=== PATIENT | male | born 1945 | race Caucasian/White ===

== ENCOUNTER → 2017-02-20 | Day surgery (SDC) | payer OTHER ==
[~2017-02-20] VITALS: Ht 162.6 cm; Wt 72.3 kg
[~2017-02-20] MED LIST: ASPI-110 PO; ATEN50TA PO; CHLORHEXIDINE GLUCONATE 2 % 1 PACK (2 CLOTHS) TOPICAL PRN; CYAN100025 SL; DEXAMETHASONE SOD PHOS 4 MG/ML VIAL ONE; DO NOT ADM ANY ANTICOAGULANT DRUGS PRN; FAMOTIDINE 20 MG/2 ML VIAL ONE; FURO40TA PO; HEPARIN SODIUM - IV 10,000 UNITS/10 ML VIAL ONE; HEPARIN-NS/PF INJ 500 ML ONE; INSULIN HUMAN REGULAR 1,000 UNITS/10 ML VIAL SQ PRN; IOHEXOL 350 MG/ML 50 ML BTL (for RAD DIAG) IVCONTRAST ONE; LACTATED RINGER'S 1000 ML IV PRN; LIDOCAINE HCL 1% PF 5 ML AMPULE OTHER ONE; METOPROLOL TARTRATE 25 MG TAB PO PRN; MIDAZOLAM HCL 2 MG/2 ML VIAL IV ONE; MIDAZOLAM HCL 2 MG/2 ML VIAL ONE; MULTTAB27 PO; OCUVTAB4 PO; ONDANSETRON HCL 4 MG/2 ML VIAL IV PUSH ONE; ONGL5TAB PO; PHENYLEPH/NS 1000 MCG/10 ML SYR IV ONE; PLAV75TA29 PO; POTA-243 PO; POVIDONE IODINE 5% (ANTISEPSIS KIT) 4 APPLICATIONS EACH NARE PRN; PROPOFOL 200 MG/20 ML AMP IV ONE; PROTAMINE SULFATE 50 MG/5 ML VIAL ONE; RAMI10CA PO; ROCURONIUM INJ 50 MG/5 ML SYRINGE IV PUSH ONE; ROSU40 PO; SODIUM CHLORID 0.9% 500 ML IV PRN; TRAM50TA PO; VITA1000 PO; VITA500C18 PO; ZETI10TA5 PO
--- NOTE | 2017-02-20 11:41 | HHI.HP ---
History of Present Illness Chief Complaint: L LE claudication History of Present Illness 71 yo male with L LE claudication. Has a history of ABF and multiple L LE angiograms. No rest pain and no tissue loss. Past/Family/Social History Past Medical History CAD PAD HTN DM Past Surgical History CABG ABF Multiple L LE angiograms Social History nonsmoker Family History NC Home Medications Reported Medications Ascorbic Acid ER (Vitamin C Sr) 500 Mg Caper, 500 MG PO DAILY for Nutritional Supplement, CAP 0 Refills 02/19/[address] (Aspirin 81) 81 Mg Tabdr, 81 MG PO DAILY, TAB 0 Refills 02/19/17 Atenolol (Atenolol) 50 Mg Tab, 50 MG PO DAILY for Blood Pressure Management, # 30 TAB 0 Refills 02/19/17 Cholecalciferol (Vitamin D-1000) 1,000 Unit Tab, 1000 UNITS PO DAILY for Nutritional Supplement, #1 BOTTLE 0 Refills 02/19/17 Clopidogrel (Plavix) 75 Mg Tab, 75 MG PO DAILY for Blood Clot Prevention, #30 TAB 0 Refills 02/19/17 Cyanocobalamin (B-12) 1,000 Mcg Subl, 1000 MCG SL DAILY for Nutritional Supplement, TAB.SL 0 Refills 02/19/17 Ezetimibe (Zetia) 10 Mg Tab, 10 MG PO DAILY, #30 TAB 0 Refills 02/19/17 Furosemide (Furosemide) 40 Mg Tab, 40 MG PO DAILY, #30 TAB 0 Refills 02/19/17 Multiple Vitamin (Multi-Day Vitamins) 1 Tab Tab, 1 TAB PO DAILY 02/19/17 Multiple Vitamins W/ Minerals (Preservision Areds) 1 Tab, 1 TAB PO DAILY for Nutritional Supplement, TAB 0 Refills 02/19/17 Potassium Chloride ER (Klor-Con 10) 10 Meq Tab, 10 MEQ PO DAILY for Electrolyte Replacement, #30 TAB 0 Refills 02/19/17 Ramipril (Ramipril) 10 Mg Cap, 10 MG PO DAILY, #30 CAP 0 Refills 02/19/17 Rosuvastatin (Crestor) 40 Mg Tab, 40 MG PO DAILY for Cholesterol Management, # 30 TAB 0 Refills 02/19/17 Saxagliptin (Onglyza) 5 Mg Tab, 5 MG PO DAILY for Blood Sugar Management, #30 TAB 0 Refills 02/19/17 Tramadol (Tramadol) 50 Mg Tab, 50 MG PO BID NEB, TAB 0 Refills 02/19/17 Coded Allergies: No Known Allergies (Verified , 12/24/12) Review of Systems Cardiovascular: DENIES: Chest pain Physical Exam Neuro: resting comfortably GALVEZ HEENT: NC/AT Neck: no JVD; trachea midline Heart: reg rate, no M Lungs: clear B Abdomen: nontender Vascular: palpable femoral pulses no L pedal pulses Caprini VTE Risk Assessment Caprini VTE Risk Assessment: Mod/High Risk (score >= 2) Caprini Risk Assessment Model Point Value = 1 Point Value = 2 Point Value = 3 Point Value = 5 Age 41-60 Minor surgery BMI > 25 kg/m2 Swollen legs Varicose veins or History of unexplained or recurrent spontaneous Oral contraceptives or hormone replacement Sepsis (< 1 month) Serious lung disease, including pneumonia (< 1 month) Abnormal pulmonary function Acute myocardial infarction Congestive heart failure (< 1 month) History of inflammatory bowel disease Medical patient at bed rest Age 61-74 Arthroscopic surgery Major open surgery (> 45 min) Laparoscopic surgery (> 45 min) Malignancy Confined to bed (> 72 hours) Immobilizing plaster cast Central venous access Age >= 75 History of VTE Family history of VTE Factor V Leiden Prothrombin [id number] Lupus anticoagulant Anticardiolipin antibodies Elevated serum homocysteine Heparin-induced thrombocytopenia Other congenital or acquired thrombophilia Stroke (< 1 month) Elective arthroplasty Hip, pelvis, or leg fracture Acute spinal cord injury (< 1 month) Prophylaxis Regimen Total Risk Factor Score Risk Level Prophylaxis Regimen 0-1 Low Early ambulation 2 Moderate Order ONE of the following: *Sequential Compression Device (SCD) *Heparin 5000 units SQ BID 3-4 Higher Order ONE of the following medications: *Heparin 5000 units SQ TID *Enoxaparin/Lovenox 40 mg SQ daily (WT < 150 kg, CrCl > 30 mL/min) *Enoxaparin/Lovenox 30 mg SQ daily (WT < 150 kg, CrCl > 10-29 mL/min) *Enoxaparin/Lovenox 30 mg SQ BID (WT < 150 kg, CrCl > 30 mL/min) AND/OR *Sequential Compression Device (SCD) 5 or more Highest Order ONE of the following medications: *Heparin 5000 units SQ TID (Preferred with Epidurals) *Enoxaparin/Lovenox 40 mg SQ daily (WT < 150 kg, CrCl > 30 mL/min) *Enoxaparin/Lovenox 30 mg SQ daily (WT < 150 kg, CrCl > 10-29 mL/min) *Enoxaparin/Lovenox 30 mg SQ BID (WT < 150 kg, CrCl > 30 mL/min) AND *Sequential Compression Device (SCD) Assessment and Plan Plan L LE claudication Plan for L LE angiogram via Abel Luque arm, MD Feb 20, 2017 11:41
--- NOTE | 2017-02-20 11:47 | RADRPT ---
EXAM DATE/TIME: 02/20/2017 11:22 [facility] COMPARISON: No previous studies available for comparison. INDICATIONS : Evaluate for pneumonia, pneumothorax or communicable disease. Pre-op, angiogram. MEDICAL HISTORY : Cerebrovascular disease. Emphysema. Hypertension. SURGICAL HISTORY : Carotid endarterectomy. CABG. Hiatal hernia. Appendectomy ENCOUNTER: Initial ACUITY: 1 day PAIN SCORE: 0/10 LOCATION: Bilateral chest FINDINGS: A single view of the chest demonstrates the lungs to be symmetrically aerated without evidence of mas s, infiltrate or effusion. The cardiomediastinal contours are unremarkable. There is been previous s ternotomy and CABG surgery. Hardware is present from cervical fusion.. CONCLUSION: No acute disease. Gonsalo Renae MD on February 20, 2017 at 11:44 Board Certified Radiologist. This report was verified electronically.
[2017-02-20 12:03] LABS: AUTOMATED NEUTROPHIL # 3.7 TH/MM3 (1.8-7.7); BASOPHIL % 0.6 % (0.0-2.0); EOSINOPHIL # 0.1 TH/MM3 (0-0.4); EOSINOPHIL % 1.7 % (0.0-4.0); HEMATOCRIT 38.7 % (39.0-51.0); HEMO FLAGS DIFF FINAL; LYMPHOCYTE # 1.1 TH/MM3 (1.0-4.8); MEAN CELL VOLUME 86.7 FL (80.0-100.0); MEAN CORPUSCULAR HGB CONC 34.5 % (32.0-36.0); MONO % 12.2 % (0.0-8.0); NEUT % 65.5 % (16.0-70.0); PLATELET COUNT 161 TH/MM3 (150-450); RED BLOOD COUNT 4.47 MIL/MM3 (4.50-5.90); RED CELL DISTRIBUTION WIDTH 13.6 % (11.6-17.2); WHITE BLOOD COUNT 5.6 TH/MM3 (4.0-11.0)
[2017-02-20 12:20] LABS: PROTHROMBIN TIME - PATIENT 10.9 SEC (9.8-11.6)
[2017-02-20 12:26] LABS: BICARBONATE 29.3 MEQ/L (21.0-32.0); POTASSIUM 4.3 MEQ/L (3.5-5.1)
--- NOTE | 2017-02-20 13:10 | HHI.PR ---
Immediate Post Op Note Procedure Date: Feb 20, 2017 Pre Op Diagnosis: L LE claudication, PAD Post Op Diagnosis: L LE claudication, PAD Surgeon: Abel Ball Field Sales Consultant(s): none Procedure: L LE angiogram U/S guided access to R brachial artery Findings: flushly occluded SFA w/ BK pop reconstitution Complications: none Specimen(s) removed: none Estimated blood loss: 10mL Anesthesia: LMA Drains: None Fluids: 500mL IVF Patient to: PACU Patient Condition: Good Date/Time of Procedure: SEE SURGICAL CARE RECORD Abel Ball MD Feb 20, 2017 13:10
--- NOTE | 2017-02-20 14:42 | EKG ---
Date Performed: 02/20/2017 Time Performed: 10:51:10 PTAGE: 71 years EKG: Sinus rhythm NORMAL ECG NO PREVIOUS TRACING DOCTOR: Jose De Jesus Poole Interpretating Date/Time 02/20/2017 14:37:13
[2017-02-20 15:30] VITALS: BP 120/63; PULSE 83; RESP 16; TEMP 97.1; O2SAT 96
--- NOTE | 2017-02-20 22:32 | MP ---
cc: JACKELIN BALL DATE OF SURGERY 02/20/17 PREOPERATIVE DIAGNOSIS Claudication, peripheral vascular disease POSTOPERATIVE DIAGNOSIS Claudication, peripheral vascular disease PROCEDURE 1. Ultrasound-guided access to right brachial artery. 2. Left lower extremity angiogram. GLADIS Ball MD ANESTHESIA LMA INDICATIONS Mr. Teresa is a gentleman with a history of an aorto-bifemoral bypass graft and multiple left lower extremity interventions. He is taken to the operating room for angiographic evaluation of his recurrent claudication. There is no prior cath based imaging available for my review. Because of the patient's aorto-bifemoral bypass grafting, contralateral or ipsilateral groin option was not the best and because of his left subclavian stenosis which is a known entity a right brachial artery approach was selected. PROCEDURE IN DETAIL Informed consent obtained from the patient. He was taken to the operating room and placed supine on the operating room table. An appropriate time-out was taken to ensure the patient's identity, operative site and planned procedure. The administration of antibiotics was not necessary as this is a clean procedure without planned implantation of any foreign object. Everyone in the room agreed with time-out and we proceeded. His right arm was prepped and draped and under ultrasonographic guidance, the right brachial artery was accessed with a 21 gauge micropuncture needle. This was exchanged using Seldinger technique for a right introducer sheath through which a 0.035 Glidewire was introduced. The micropuncture sheath was exchanged for a 5-[place] sheath. The patient was systemically heparinized with 3000 units of IV heparin. The Glidewire was navigated down to the aorta and the Glidewire and catheter were navigated down to the infrarenal aorta and then into the aorto-bifemoral bypass graft and into the left limb of the aorto-bifemoral bypass graft. The cath was ultimately navigated down to the left common femoral artery and a left lower extremity angiogram was obtained. Wire, catheter and sheath were removed, pressure held for hemostasis. There were no complications and I was present and scrubbed for the entire procedure. CONCLUSIONS The patient has a patent profunda and flush occlusion of his SFA with reconstitution of an above knee popliteal artery. There is a popliteal stenosis in the below-knee popliteal artery is widely patent with three-vessel runoff to the mid calf. MD GRISEL Carver /1:40 PM /10:17 PM
== END | disposition home or self-care (01) ==
LOC: HSDC 10:06
PROVIDERS: ATTEND Surgery
DX: I73.9 Peripheral vascular disease, unspecified (principal); I10 Essential (primary) hypertension; E11.9 Type 2 diabetes mellitus without complications; Z95.1 Presence of aortocoronary bypass graft; I25.10 Atherosclerotic heart disease of native coronary artery without angina pectoris
CPT/HCPCS: 01916; 36246; 71010; 75710; 76937; 80048; 85025; 85610; 86850; 86900; 86901; 93005; C1769; J1100; J1644; J2250; J2370; J2405; J2720; J3010; J7120; Q9967